=== PATIENT | male | born 1985 | race Caucasian/White ===

== ENCOUNTER 2017-10-08 13:44 | Emergency (ER) | payer OTHER ==
[~2017-10-08] VITALS: Ht 177.8 cm; Wt 95.4 kg
[~2017-10-08 13:44] MED LIST: CIPROFLOXACIN500 M1 PO; FLONASE16 G1 BOTH NARES; KEFLEX500 MG PO; METHADONE10 MG PO; MOTRIN800 MG PO; MUCUS ER600 MG PO; NAPROSYN500 MG PO; NOHOMEMEDS; ZITHROMAX Z-PA250 MG PO
[2017-10-08 14:18] LABS: HEMATOCRIT 42.9 % (38.0-50.0); HEMOGLOBIN 14.7 G/DL (12.5-16.6); MCH 30.9 PG (29.0-34.0); MCHC 34.3 G/DL (30.0-36.0); MCV 90.3 FL (86-99); PLATELET COUNT 249 K/uL (156-360); RBC DIS.WIDTH-CV 12.6 % (11.8-14.6); RBC DIS.WIDTH-SD 41.7 % (39-53); RED BLOOD COUNT 4.75 M/uL (4.00-5.50); WHITE BLOOD COUNT 11.8 K/uL (4.1-10.2)
[2017-10-08 14:28] LABS: CHLORIDE 103 mEq/L (99-109); POTASSIUM 3.9 mEq/L (3.7-5.4); SODIUM 139 mEq/L (136-147)
[2017-10-08 14:29] LABS: GLUCOSE 73 mg/dL (70-99)
[2017-10-08 14:33] LABS: CREATININE 0.8 mg/dL (0.6-1.3); GFR ESTIMATE (CALCULATED) > 59 mL/min/ (58.99-99999)
[2017-10-08 14:34] LABS: UREA NITROGEN (BUN) 15 mg/dL (9-23)
[2017-10-08 14:38] LABS: TROP-I INTERPRETATION NEGATIVE; TROPONIN-I < 0.01 ng/mL (0.0-0.30)
[2017-10-08 16:43] LABS: TROP-I INTERPRETATION NEGATIVE; TROPONIN-I < 0.01 ng/mL (0.0-0.30)
[2017-10-08] MEDS ORDERED: FLEXERIL10 MG PO (16:52)
[2017-10-08 17:14] VITALS: BP 146/77
== END 2017-10-08 17:17 | disposition home or self-care (01) ==
LOC: EME 13:44
PROVIDERS: Nurse Practitioner Family
DX: R07.9 Chest pain, unspecified (principal); I49.3 Ventricular premature depolarization; M25.512 Pain in left shoulder; F17.210 Nicotine dependence, cigarettes, uncomplicated
CPT/HCPCS: 71020; 80048; 84484; 85027; 93005; 99281; 99284